=== PATIENT | male | born 1965 | race Caucasian/White ===

== ENCOUNTER 2017-06-14 19:10 | Inpatient (IN) | payer OTHER ==
[~2017-06-14] VITALS: Ht 195.6 cm; Wt 117.8 kg
--- NOTE | ~2017-06-14 | CN ---
PATIENT NAME:ADIN MENA MEDICAL RECORD: [id number] : 69 LOCATION:[facility] ADMIT DATE: 06/14/17 ACCOUNT: [id number] CONSULTING PHYSICIAN: JASPAL PATEL MD REFERRING PHYSICIAN: CHRIS HALEY MD DATE OF CONSULTATION: 06/15/2017 ADDENDUM: PHYSICAL EXAMINATION: GENERAL: The patient does not appear acutely ill. He does not appear chronically ill. VITAL SIGNS: Reviewed. EARS: External ears appear normal. EYES: Extraocular movements are intact. NECK: Trachea is midline. CHEST: No intercostal retractions. PULMONARY: Nonlabored, no stridor. ABDOMEN: No peritonitis with movement. EXTREMITIES: Foot wound as described in the history of present illness. BACK: No thoracic kyphosis. LYMPHATICS: No lymphangitic streaking of the exposed extremities. PSYCHIATRIC: Anxious affect, tearful. NEUROLOGIC: Decreased sensation in the feet. IMPRESSION: Diabetic foot infections with ulceration and probable osteomyelitis. PLAN: Operative debridement per Dr. Mtz. He is going to review the MRIs and speak with the patient and his family. TRANSINT:[id number] Voice Confirmation ID: [id number] DOCUMENT ID: [id number] JASPAL PATEL MD CC: [id number] DICTATION DATE: 06/15/17 1721 EPIDEMIOLOGY INTERNSHIP: 06/15/[address] [facility] [address] [place] [address]
[~2017-06-14 19:10] MED LIST: CLEOCIN HCL150 MG PO; FARXIGA10 MG PO; JANUMET 50-1,001 TAB PO; LEVAQUIN500 MG PO; STENDRA PO
--- NOTE | 2017-06-14 19:33 | NUR ---
REC'D A DIRCT ADMIT TO ROOM 2222 PER W/C A 51 Y/O W/M PER SERVICES DR. HALEY WITH DX. ABSCESS LEFT FOOT 2 AREAS OF INFECTION WITH SCABS NOTED TO BOTTOM OF LEFT FOOT. ASSESSMENT PER ADMIT PACKET.
[2017-06-14] MEDS ORDERED: BAYER CHEWABLE81 MG PO (20:24)
[2017-06-14] MEDS ORDERED: CIALIS5 MG PO (20:24)
--- NOTE | 2017-06-14 21:30 | NUR ---
IV STARTED TO LEFT WRIST 22G ANGIOCATH X2 ATTEMPTS STARTED PT ANTIBIOTIC. WOUND CULTURE OBTAINED AND SENT TO LAB.
--- NOTE | 2017-06-14 21:36 | NUR ---
FIJE=989. HUMALOG INSULIN 4 UNITS GIVEN SUBC PER S/S LEFT ARM.
[2017-06-14 23:11] VITALS: BP 136/84; BMI 30.8
--- NOTE | 2017-06-15 | NUR ---
EYES CLOSED RESPIRATIONS WITH EASE AND UNLABORED. R UP X2 CALL LIGHT WITHIN REACH.
[2017-06-15] MEDS ORDERED: OMEPRAZOLE20 M1 PO (00:10)
--- NOTE | 2017-06-15 03:00 | NUR ---
RESTING QUIETLY DENIES PAIN OR DISCOMFORT.
[2017-06-15 05:57] LABS: HEMATOCRIT 48.7 % (42.0-54.0); HEMOGLOBIN 16.6 g/dL (13.5-17.5); MCH 29.1 pg (26.0-34.0); MCHC 34.1 g/dL (31.0-37.0); MCV 85.4 fL (80.0-100.0); MEAN PLATELET VOLUME 10.2 fL (7.4-10.4); PLATELET COUNT 292 10x3/uL (130-400); WBC 10.7 10x3/uL (4.8-10.8)
[2017-06-15 06:25] LABS: CALC OSMOLALITY 282 mosm/kg (275-300); CALCIUM 9.1 mg/dL (8.5-10.1); CARBON DIOXIDE 23.5 mmol/L (21.0-32.0); CHLORIDE - SERUM 103 mmol/L (98-107); GLUCOSE 154 mg/dL (74-106); SODIUM 140 mmol/L (136-145); UREA NITROGEN 16 mg/dL (7-18); eGFR NON AFRICAN AMERICAN 84 mL/min (90-120)
[2017-06-15 06:46] LABS: ANISOCYTOSIS OCC; EOSINOPHILS 7 % (0-7); LYMPHOCYTES 24 % (15-50); MONOCYTES 6 % (2-11); NEUTROPHILS 59 % (40-80); PLATELET ESTIMATE NORMAL
--- NOTE | 2017-06-15 06:53 | NUR ---
GLUCOSE WITH TAA=441. HUMALOG UINSULIN 2 UNITS GIVEN PER S/S.
--- NOTE | 2017-06-15 07:15 | NUR ---
REPORT RECEIVED FROM [employer] INS[employer]ANCE CLAIMS ADJUSTER NURSE. CALL LIGHT IN REACH.
--- NOTE | 2017-06-15 08:20 | NUR ---
ASSESSMENT COMPLETED. CALL LIGHT IN REACH. WILL CONTINUE WITH PLAN OF CARE.
[2017-06-15 08:42] VITALS: BP 123/77
--- NOTE | 2017-06-15 10:36 | NUR ---
REBECA IVPB. ORAL MEDS HELD D/T NPO STATUS. CALL LIGHT IN REACH.
--- NOTE | 2017-06-15 11:45 | NUR ---
FSBS 163. WILL NOT GIVE INSULIN D/T NPO STATUS.
[2017-06-15 12:52] VITALS: BP 135/83
--- NOTE | 2017-06-15 13:25 | NUR ---
DR. LASWON HERE TO SEE PATIENT.
[2017-06-15 14:04] VITALS: Ht 195.6 cm; Wt 117.8 kg
--- NOTE | 2017-06-15 15:26 | NUR ---
CALLED MRI TO SEE WHAT TIME PATIENT WILL HAVE THE MRI OF HIS LEFT FOOT BUT NO ANSWER. WILL CALL AGAIN LATER.
--- NOTE | 2017-06-15 15:48 | NUR ---
PT AOX4 RESP EVEN AND NONLABORED PT HERE FOR FOOT ABCESS AND CELLULITIS FOR THIS VISIT IV TO LEFT WRIST PATENT AND INTACT AT THIS TIME SRX2 BED AT LOWEST SETTING CALL LIGHT WITHIN REACH WILL CONTINUE TO MONITOR
--- NOTE | 2017-06-15 16:05 | NUR ---
FRANCIS LISA, IN ROOM TO SPEAK WITH PATIENT.
[2017-06-15 16:39] VITALS: BP 150/88
--- NOTE | 2017-06-15 16:42 | NUR ---
Patient Name: ADIN MENA Admission Status: Elective Accout number: [id number] Admission Date: 06-14-2017 : 1965 Admission Diagnosis: Attending: CHRIS HALEY Current LOS: 1 Anticipated DC Date: 06-19-2017 Planned Disposition: Home with Home Health Primary Insurance: [facility] PPO Discharge Planning Comments: CM MET WITH PATIENT REGARDING D/C NEEDS AND PLANS. PATIENT STATED HE LIVES WITH HIS (RENEE) AND SHE WILL DRIVE HIM HOME AT DISCHARGE. PATIENT STATED HE HAS 10 STEPS INSIDE HOME W/RAILS AND NO STEPS TO ENTER HOME. PATIENT IS INDEPENDENT WITH HIS CARE AND HAS NO DME EXCEPT A GLUCOMETER (CHECKS 1X WEEK). PATIENTS PCP IS DR. HALEY AND PHARMACY IS [facility] [address]. PATIENT WILL CHOOSE A HOME HEALTH LATER IN HIS STAY. CM WILL CONTINUE TO FOLLOW PATIENT WITH D/C NEEDS AND PLANS. PCP DR. TERA BEAVER- [phone] RENEE () [phone] Assistant Manager Of Operations: Brinda Mederos Is the patient Alert and Oriented? Yes 0 * How many steps to enter\exit or inside your home? 10 0 * PCP DR. HALEY 0 * [facility] [address] [facility] * Preadmission Environment Home with Family 0 * ADLs Independent 0 * Equipment Glucometer 0 * List name and contact numbers for known caregivers / representatives who currently or will assist patient after discharge: RENEE () [phone] * Community resources currently utilized None 0 * Additional services required to return to the preadmission environment? Yes 0 * Can the patient safely return to the preadmission environment? Yes 0 * Has this patient been hospitalized within the prior 30 days at any hospital? No 0 Grand Total: 0
--- NOTE | 2017-06-15 18:20 | NUR ---
BACK IN ROOM FROM MRI AFTER 2 HOURS. ORAL MEDS ADMINISTERED AND DINNER TRAY GIVEN. WILL RECHECK BLOOD SUGAR TONIGHT. CALL LIGHT IN REACH. WILL CONTINUE WITH PLAN OF CARE.
[2017-06-15 20:00] VITALS: BP 124/79
--- NOTE | 2017-06-15 20:00 | NUR ---
ASSESSMENT PER FLOWSHEET. 2 BLACK SORES WITH SCABS LOCATED TO PT'S BOTTOM RIGHT FOOT NO DRAINAGE. SALINE LOCK PATENT LEFT WRIST.FAMILY IN ROOM
--- NOTE | 2017-06-15 21:00 | NUR ---
MEDS GIVEN PER MAR. CQQS=394 HUMALOG INSULIN 4 UNITS GIVEN SUBC PER S/S.
[2017-06-16] VITALS: BP 116/65
--- NOTE | 2017-06-16 | NUR ---
NPO AFTER MIDNIGHT ORDERED.
--- NOTE | 2017-06-16 03:00 | NUR ---
EYES CLOSED RESPIRATIONS WITH EASE AND UNLABORED. DENIES PAIN.
[2017-06-16 04:00] VITALS: BP 120/73
--- NOTE | 2017-06-16 06:30 | NUR ---
JHUZ=249 NO COVERAGE GIVEN PT IS NPO FOR POSSIBLE SURGERY.
--- NOTE | 2017-06-16 07:20 | NUR ---
REPORT RECIEVED, ASSUMED CARE OF PT. PT RESTING IN BED, EYES SHUT, EASILY AROUSED, NO COMPLAINTS AT THIS TIME. BED IN LOWEST POSITION, SIDE RAILS UP X 2, CALL LIGHT WITHIN REACH.
[2017-06-16 08:58] VITALS: BP 133/76
--- NOTE | 2017-06-16 12:09 | NUR ---
CONSENT FOR (LEFT FOOT ULCERATIONS DEBRIDEMENT) PROCEDURE, CONSENT FOR ANESTHESIA AND CONSENT FOR BLOOD SIGNED BY PT.
[2017-06-16 12:48] VITALS: BP 120/75
--- NOTE | 2017-06-16 16:00 | NUR ---
PT RESTING IN ROOM, WATCHING TV. NO COPMLAINTS AT THIS TIME. BED IN LOWEST POSITION, SIDE RAILS UP X 2, CALL LIGHT WITHIN REACH.
[2017-06-16 17:46] VITALS: BP 159/86
--- NOTE | 2017-06-16 18:58 | NUR ---
PT FAMILY AT BEDSIDE, NO COMPLAINTS AT THIS TIME. SITTING UP IN CHAIR.
--- NOTE | 2017-06-16 19:00 | NUR ---
REPORT RECIEVED ASSUMED CARE. PATIENT IN BED WITH IV INTACT. NO COMPLAINTS AT THIS TIME. FAMILY AT BEDSIDE. CALL LIGHT WITHIN REACH.
[2017-06-16 20:00] VITALS: BP 129/83
--- NOTE | 2017-06-16 20:00 | NUR ---
ASSESSMENT COMPLETE, VS STABLE. NO COMPLAINTS AT THIS TIME. IV INTACT. NO DRESSING OVER FOOT WOUNDS. NO DRAINAGE AT THIS TIME. EXPLAINED NPO P MN FOR SURGERY IN AM. VERBALIZED UNDERSTANDING. CALL LIGHT WITHIN REACH.
--- NOTE | 2017-06-16 22:45 | NUR ---
PATIENT IN BED WITH IV INTACT. EATING GRAM CRACKERS AT THIS TIME. REFUSE INSULIN EARLIER FOR BS 192 BC GOING TO BE NPO P MN. CALL LIGHT WITHIN REACH.
[2017-06-17] VITALS: BP 130/78
--- NOTE | 2017-06-17 01:25 | NUR ---
PATIENT IN BED WITH EYES CLOSED RESTING QUIETLY. CALL LIGHT WITHIN REACH.
--- NOTE | 2017-06-17 03:57 | NUR ---
PATIENT IN BED WITH IV INTACT. NO COMPLAINTS AT THIS TIME. EYES CLOSED RESTING. CALL LIGHT WITHIN REACH.
[2017-06-17 04:00] VITALS: BP 102/66
--- NOTE | 2017-06-17 05:17 | NUR ---
PATIENT IN BED WITH NO COMPLAINTS AT THIS TIME. IV INTACT. CALL LIGHT WITHIN REACH.
--- NOTE | 2017-06-17 07:00 | NUR ---
REPORT RECIEVED, ASSUMED CARE OF PT.
[2017-06-17 07:26] LABS: BASOPHILS 0.4 % (0-2); EOSINOPHILS 3.9 % (0-7); HEMATOCRIT 49.1 % (42.0-54.0); IMMATURE GRANULOCYTES 0.4 % (0-5); LYMPHOCYTES 20.3 % (15-50); MCH 29.4 pg (26.0-34.0); MCHC 34.6 g/dL (31.0-37.0); MCV 84.9 fL (80.0-100.0); MEAN PLATELET VOLUME 9.6 fL (7.4-10.4); MONOCYTES 8.2 % (2-11); NEUTROPHILS 66.8 % (40-80); PLATELET COUNT 267 10x3/uL (130-400); RBC 5.78 10x6/uL (4.20-6.10); RDW 13.8 % (11.5-14.5); WBC 10.6 10x3/uL (4.8-10.8)
[2017-06-17 07:39] LABS: ALKALINE PHOSPHATASE 79 U/L (46-116); ALT (SGPT) 14 U/L (10-68); BILIRUBIN - TOTAL 0.32 mg/dL (0.2-1.3); CALC OSMOLALITY 277 mosm/kg (275-300); CALCIUM 8.5 mg/dL (8.5-10.1); CARBON DIOXIDE 25.1 mmol/L (21.0-32.0); CHLORIDE - SERUM 103 mmol/L (98-107); POTASSIUM - SERUM 4.1 mmol/L (3.5-5.1); SODIUM 136 mmol/L (136-145); UREA NITROGEN 13 mg/dL (7-18); eGFR NON AFRICAN AMERICAN 84 mL/min (90-120)
[2017-06-17 07:41] LABS: GLUCOSE 211 mg/dL (74-106)
[2017-06-17 08:32] VITALS: BP 131/79
--- NOTE | 2017-06-17 11:57 | NUR ---
PT RESTING IN ROOM, NO COMPLAINTS AT THIS TIME. BED IN LOWEST POSITION, SIDE RAILS UP X 2, CALL LIGHT WITHIN REACH.
[2017-06-17 12:09] VITALS: BP 145/87
--- NOTE | 2017-06-17 12:26 | NUR ---
CONTACT ISOLATION PRECAUTIONS IN PLACE. PT AND FAMILY NOTIFIED.
--- NOTE | 2017-06-17 13:32 | NUR ---
NUTRITION F/U CHART REVIEWED. PT NOW IN ISOLATION. NPO FOR PROCEDURE. WILL PROVIDE DIET WHEN RESUMED, MONITOR PT PROGRESS. RD FOLLOWING
[2017-06-17 16:44] VITALS: BP 100/60
--- NOTE | 2017-06-17 16:49 | NUR ---
PT RESTING IN ROOM, CONTACT ISOLATION PRECAUTIONS IN PLACE. AT BEDSIDE. NO COMPLAINTS AT THIS TIME. BED IN LOWEST POSITION, SIDE RAILS UP X 2, CALL LIGHT WITHIN REACH.
--- NOTE | 2017-06-17 19:00 | NUR ---
REPORT RECIEVED ASSUMED CARE. PATIENT IN BED WITH IV INTACT. NO COMPLAINTS AT THIS TIME. CALL LIGHT WITHIN REACH.
[2017-06-17 20:00] VITALS: BP 144/83
--- NOTE | 2017-06-17 20:00 | NUR ---
ASSESSMENT COMPLETE, VS STABLE. NO COMPLAINTS AT THIS TIME. SITTING UP IN BED WITH IV INTACT. FAMILY AT BEDSIDE. CALL LIGHT WITHIN REACH.
--- NOTE | 2017-06-17 23:00 | NUR ---
PATIENT IN BED WITH EYES CLOSED. NO COMPLAINTS. CALL LIGHT WITHIN REACH.
[2017-06-18] VITALS (7 sets, daily range): BP systolic 126–153; BP diastolic 72–92
--- NOTE | 2017-06-18 01:53 | NUR ---
PATIENT IN BED WITH EYES CLOSED RESTING QUIETLY. NO COMPLAINTS OR SIGNS OF DISTRESS. CALL LIGHT WITHIN REACH.
--- NOTE | 2017-06-18 04:21 | NUR ---
PATIENT RESTING QUIETLY IN BED WITH NO COMPLAINTS. CALL LIGHT WITHIN REACH.
--- NOTE | 2017-06-18 07:30 | NUR ---
RECIEVED PT DURING WALKING ROUNDS. PT RESTING IN BED WITH NO COMPLAINTS OF PAIN OR DISCOMFORT AT THIS TIME. PT AWAITING SURGERY. ASSESSMENT DONE PER FLOWSHEET. BED IN LOW POSITION AND CALL LIGHT WITHIN REACH.
--- NOTE | 2017-06-18 10:00 | NUR ---
PT TAKEN FOR SURGERY AT THIS TIME. NO PRE-OP MEDS GIVEN ON THE FLOOR DUE TO NO ORDERS. INFORMATION RELAYED TO PRE-OP NURSE.
--- NOTE | 2017-06-19 01:26 | NUR ---
PT RESTING QUIETLY, EYES CLOSED. NO DISTRESS NOTED. CONTACT ISOLATION. LEFT FOOT KAIDEN WRAP/DRSG WITH SEROSANG DRAINAGE. DENIES PAIN. FSBS 134 NO INSULIN COVERAGE. COMPLETE ASSESSMENT PER FLOW-SHEET. WILL CONTINUE TO MONITOR.
[2017-06-19 04:04] VITALS: BP 149/71
[2017-06-19 05:16] LABS: HEMATOCRIT 47.1 % (42.0-54.0); HEMOGLOBIN 16.1 g/dL (13.5-17.5)
--- NOTE | 2017-06-19 07:30 | NUR ---
RECIEVED PT DURING WALKING ROUNDS, PT RESTING IN BED WITH COMPLAINTS OF PAIN OF A 3 ON A SCALE OF 1-10. NO MEDICATION TO BE GIVEN AT THIS TIME. ASSESSMENT DONE PER FLOWSHEET. BED IN LOW POSITION AND CALL LIGHT WITHIN REACH. WILL CONTINUE TO MONITOR.
[2017-06-19 08:57] VITALS: BP 114/71
[2017-06-19 12:35] VITALS: BP 118/73
[2017-06-19 15:25] VITALS: BP 120/68
[2017-06-19 19:00] VITALS: BP 112/73
[2017-06-20] VITALS: BP 123/69
--- NOTE | 2017-06-20 03:15 | NUR ---
RN NOTE: PT RESTING QUIETLY IN SUPINE POSITION WITH EYES CLOSED AND UNLABORED BREATHING. O2 IN USE AT 2L VIA NC. IV IN LEFT WRIST SALINE LOCKED. WILL CONTINUE TO MONITOR FOR NEEDS. CALL LIGHT WITHIN REACH.
[2017-06-20 04:00] VITALS: BP 110/53
[2017-06-20 04:55] LABS: HEMATOCRIT 46.4 % (42.0-54.0); HEMOGLOBIN 15.9 g/dL (13.5-17.5)
--- NOTE | 2017-06-20 07:25 | NUR ---
REPORT RECEIVED FROM CLINICAL ASSISTANT NURSE. CALL LIGHT IN REACH.
--- NOTE | 2017-06-20 09:15 | NUR ---
ASSESSMENT COMPLETED. DENIES NEEDS. OFFERED SCD TO RLE BUT REFUSED. CALL LIGHT IN REACH. WILL CONTINUE WITH PLAN OF CARE.
[2017-06-20 10:01] VITALS: BP 115/67
--- NOTE | 2017-06-20 10:42 | NUR ---
AM MEDS ADMINISTERED. DENIES PAIN OR NEEDS. CALL LIGHT IN REACH.
--- NOTE | 2017-06-20 12:23 | NUR ---
FSBS 235. HUMALOG 8 UNITS SUBQ TO RIGHT ARM. IV SL. CALL LIGHT IN REACH.
[2017-06-20 13:13] VITALS: BP 136/79
--- NOTE | 2017-06-20 14:03 | NUR ---
IN ROOM WITH FAMILY AT THIS TIME. DRSG TO LEFT FOOT CLEAN AND DRY. TALENT DEVELOPMENT CONSULTANT TO CHANGE DRSG. CONTACT ISOLATION. DENIES NEEDS AND PAIN AT THIS TIME. CALL LIGHT IN REACH.
--- NOTE | 2017-06-20 15:20 | NUR ---
IV FLUSHED WITH NS PER ORDER. FAMILY AT BEDSIDE. CALL LIGHT IN REACH.
[2017-06-20 15:56] VITALS: BP 110/74
--- NOTE | 2017-06-20 17:11 | NUR ---
EVENING MEDS ADMINISTERED. FSBS 117 SO NO COVERAGE REQUIRED. CALL LIGHT IN REACH.
--- NOTE | 2017-06-20 17:50 | NUR ---
DRSG TO LEFT FOOT CHANGED PER ORDER.
--- NOTE | 2017-06-20 18:06 | NUR ---
NO CHANGES IN INITIAL ASSESSMENT. CALL LIGHT IN REACH. WILL CONTINUE WITH PLAN OF CARE. STILL REFUSES SCDs.
[2017-06-20 19:00] VITALS: BP 141/91
--- NOTE | 2017-06-20 20:00 | NUR ---
ASSESSMENT PER FLOWSHEET. ACEWRAP TO LEFT FOOT C/D/I. SALINE LOCK PATENT TO LEFT WRIST SITE CLEAR. AANTIBIOTIC ADDED TO SITE TO INFUSE.
--- NOTE | 2017-06-20 21:00 | NUR ---
MEDS GIVEN PER MAR. OLAN=825. HUMALOG INSULIN 4 UNITS SUBC PER S/S GIVEN TO RT ARM.
--- NOTE | 2017-06-20 22:00 | NUR ---
OUT BED IN TO GO OUTSIDE TO SMOKE.
[2017-06-21] VITALS: BP 146/87
--- NOTE | 2017-06-21 01:59 | NUR ---
IN ROOM EYES CLOSED RESPIRATIONS WITH EASE AND UNLABORED.
--- NOTE | 2017-06-21 03:40 | NUR ---
MEDS GIVEN PER MAR. YNUO=672. NO COVERAGE NEEDED.
[2017-06-21 04:00] VITALS: BP 112/69
--- NOTE | 2017-06-21 04:15 | NUR ---
EYES CLOSED RESPIRATIONS WITH EASE AND UNLABORED.
[2017-06-21 05:31] LABS: HEMOGLOBIN 16.2 g/dL (13.5-17.5)
--- NOTE | 2017-06-21 06:00 | NUR ---
CGRT=382 NO COVERAGE NEEDED. NO CHANGES IN ASSESSMENT MEDS GIVEN PER DEC.
--- NOTE | 2017-06-21 07:09 | NUR ---
REPORT RECEIVED FROM EXPERIENCE SPECIALIST NURSE. CALL LIGHT IN REACH.
--- NOTE | 2017-06-21 07:18 | NUR ---
PATIENT IN BED WITH IV INTACT. NO COMPLAINTS OR SIGNS OF DISTRESS. CALL LIGHT WITHIN REACH.
--- NOTE | 2017-06-21 07:49 | NUR ---
ASSESSMENT COMPLETED. DENIES NEEDS. REFUSE SCD TO RLE. CALL LIGHT IN REACH. WILL CONTINUE WITH PLAN OF CARE.
[2017-06-21 08:45] VITALS: BP 120/69
[2017-06-21 09:02] LABS: BASOPHILS 0.2 % (0-2); EOSINOPHILS 5.5 % (0-7); IMMATURE GRANULOCYTES 0.4 % (0-5); LYMPHOCYTES 25.9 % (15-50); MCH 29.2 pg (26.0-34.0); MCHC 34.3 g/dL (31.0-37.0); MEAN PLATELET VOLUME 10.2 fL (7.4-10.4); MONOCYTES 12.9 % (2-11); NEUTROPHILS 55.1 % (40-80); PLATELET COUNT 256 10x3/uL (130-400); RBC 5.59 10x6/uL (4.20-6.10); RDW 13.7 % (11.5-14.5)
[2017-06-21 09:10] LABS: ALBUMIN 2.9 g/dL (3.4-5.0); ALKALINE PHOSPHATASE 68 U/L (46-116); ALT (SGPT) 19 U/L (10-68); BILIRUBIN - TOTAL 0.34 mg/dL (0.2-1.3); CALC OSMOLALITY 278 mosm/kg (275-300); CALCIUM 8.4 mg/dL (8.5-10.1); CARBON DIOXIDE 25.1 mmol/L (21.0-32.0); CHLORIDE - SERUM 103 mmol/L (98-107); CREATININE - SERUM 1.1 mg/dL (0.6-1.3); POTASSIUM - SERUM 3.9 mmol/L (3.5-5.1); PROTEIN - SERUM 6.8 g/dL (6.4-8.2); SODIUM 138 mmol/L (136-145); UREA NITROGEN 15 mg/dL (7-18); eGFR NON AFRICAN AMERICAN 75 mL/min (90-120)
[2017-06-21 09:11] LABS: GLUCOSE 129 mg/dL (74-106)
--- NOTE | 2017-06-21 09:50 | NUR ---
AMBULATING IN HALLWAY AT THIS TIME. DENIES OTHER NEEDS. CALL LIGHT IN REACH.
--- NOTE | 2017-06-21 10:42 | NUR ---
AM MEDS ADMINISTERED PER KYLE WIN.
[2017-06-21 12:33] VITALS: BP 135/79
--- NOTE | 2017-06-21 12:40 | NUR ---
[id number] F/U CHART REVIEWED, PT VISIT. TOLERATING ADA DIET WITH GOOD PO INTAKE. WILL CONTINUE TO PROVIDE DIET. RD FOLLOWING
--- NOTE | 2017-06-21 12:49 | NUR ---
FSBS 172 AFTER EATING. WANTING TO SKIP INSULIN AT THIS TIME.
--- NOTE | 2017-06-21 14:30 | NUR ---
NO NEEDS VOICED AT THIS TIME. CALL LIGHT IN REACH.
[2017-06-21 15:25] VITALS: BP 128/64
--- NOTE | 2017-06-21 16:50 | NUR ---
BLOOD SUGAR 117 SO NO COVERAGE REQUIRED. CALL LIGHT IN REACH.
--- NOTE | 2017-06-21 18:15 | NUR ---
WTD DRSG TO LEFT FOOT. NO CHANGES IN INITIAL ASSESSMENT. CALL LIGHT IN REACH. WILL CONTINUE WITH PLAN OF CARE. STILL REFUSES SCDs.
[2017-06-21 20:00] VITALS: BP 106/65
--- NOTE | 2017-06-21 20:00 | NUR ---
ASSESSMENT PER FLOWSHEET. DRESSIG TO LEFT FOOT C/D/I. OUT OF BED IN WC TO GO OUTSIDE. SALINE LOCK PATENT LEFT WRIST.
--- NOTE | 2017-06-21 22:30 | NUR ---
OUT OF BED TO GO OUTSIDE IN .
[2017-06-22] VITALS: BP 122/65
--- NOTE | 2017-06-22 | NUR ---
IN ROOM SR UP X2 CALL LIGHT WITHIN REACH RESTING QUIETLY DENIES NEEDS.
--- NOTE | 2017-06-22 02:00 | NUR ---
EYES CLOSED RESPIRATIONS WITH EASE AND UNLABORED.
[2017-06-22 06:23] LABS: BASOPHILS 0.3 % (0-2); EOSINOPHILS 5.9 % (0-7); HEMATOCRIT 47.6 % (42.0-54.0); HEMOGLOBIN 16.2 g/dL (13.5-17.5); IMMATURE GRANULOCYTES 0.6 % (0-5); LYMPHOCYTES 25.7 % (15-50); MCH 28.9 pg (26.0-34.0); MEAN PLATELET VOLUME 9.9 fL (7.4-10.4); MONOCYTES 9.5 % (2-11); PLATELET COUNT 257 10x3/uL (130-400); RDW 13.9 % (11.5-14.5); WBC 8.9 10x3/uL (4.8-10.8)
[2017-06-22 06:54] LABS: ALBUMIN 2.9 g/dL (3.4-5.0); ALKALINE PHOSPHATASE 77 U/L (46-116); ALT (SGPT) 17 U/L (10-68); BILIRUBIN - TOTAL 0.32 mg/dL (0.2-1.3); C-REACTIVE PROTEIN 1.9 mg/dL (0.0-0.9); CALC OSMOLALITY 282 mosm/kg (275-300); CALCIUM 8.8 mg/dL (8.5-10.1); CARBON DIOXIDE 27.6 mmol/L (21.0-32.0); CHLORIDE - SERUM 103 mmol/L (98-107); GLUCOSE 156 mg/dL (74-106); POTASSIUM - SERUM 4.2 mmol/L (3.5-5.1); PROTEIN - SERUM 6.9 g/dL (6.4-8.2); SODIUM 140 mmol/L (136-145); UREA NITROGEN 16 mg/dL (7-18); eGFR NON AFRICAN AMERICAN 84 mL/min (90-120)
[2017-06-22 07:54] LABS: ERYTHROCYTE SEDIMENTATION RATE 7 mm/hr (0-15)
--- NOTE | 2017-06-22 08:21 | NUR ---
PT AOX4 RESP EVEN AND NONLABORED PT DENIES NEEDS AT THIS TIME IV TO LEFT WRIST SL PATENT AND INTACT AT THIS TIME SRX2 BED AT LOWEST SETTING CALL LIGHT WITHIN REACH WILL CONTINUE TO MONITOR
[2017-06-22 08:48] VITALS: BP 130/86
--- NOTE | 2017-06-22 11:13 | NUR ---
CM REASSESSMENT NOTE: PATIENT SIGNED THE [place] FORM FOR [facility] 1ST CHOICE AND THEN [facility] 2ND CHOICE. ABX ORDER SENT TO [facility] FOR PRICING. CM WILL CONTINUE TO FOLLOW PATIENT WITH D/C NEEDS AND PLANS.
[2017-06-22 12:33] VITALS: BP 144/83
--- NOTE | 2017-06-22 13:51 | NUR ---
CM REASSESSMENT NOTE: PATIENT IS DISCHARGING HOME TODAY WITH [facility]. [employer] DELIVERING ABX TONIGHT AND HAS BEEN IN CONTACT WITH [employer]. PATIENT WILL PAY 16.00 PER VISIT FOR [employer] AND COPAY FOR [employer] IS 300.53 PER NICK. PATIENT WAS OK WITH THIS AND IS DRIVING HIM HOME TODAY.
[2017-06-22] MEDS ORDERED: FLORAJEN3 CAPS460 MG PO (14:38)
[2017-06-22] MEDS ORDERED: FLAGYL500 MG PO (14:40)
[2017-06-22] MEDS ORDERED: VANCOMYCIN 1 GM/1 G1 IV (14:41)
--- NOTE | 2017-06-22 14:49 | OP ---
PATIENT NAME: ADIN GUY MEDICAL RECORD: [id number] :69 LOCATION:[facility] ADMISSION DATE:06/14/17 SURGEON: MAYUR LAWSON DO DATE OF OPERATION: 06/18/2017 PROCEDURE PERFORMED: Left foot stage IV diabetic plantar foot ulcer debridement with tissue biopsy and bone biopsy and cultures. PREOPERATIVE DIAGNOSES: Left diabetic stage IV plantar foot ulcers with osteomyelitis in the 4th metatarsal. POSTOPERATIVE DIAGNOSES: Left diabetic stage IV plantar foot ulcers with osteomyelitis in the 4th metatarsal. INDICATIONS: Mr. Guy is a 51-year-old male that presented to the hospital with a draining wound from the left plantar foot. He had an ulcer on the plantar surface over the fourth metatarsal. Two years ago, it was debrided and had never healed and then began to get an ulcer over the plantar of the first metatarsophalangeal joint. In the last few weeks, started being getting sick and having more drainage from an inside to come in. He had an MRI, which showed osteomyelitis of the fourth metatarsal and cellulitis as well as what appeared to be infection, increased uptake in over the first metatarsophalangeal joint as well as some soft tissue. I had a long discussion with him about due to the chronicity of his ulcers and the infection that was in it, I offered amputation either transmet or below-knee amputation. He did not want that. He said he would like to have his foot debrided again and have wound care done. Due to the patient's wishes, this is what was performed. SURGEON: Mayur Lawson DO. DESCRIPTION OF PROCEDURE: The patient was taken to the operative suite, given general anesthetic and LMA was placed. Timeout was performed. The patient has been receiving antibiotics on the floor, we discontinue those and everyone was in agreement with the correct site, side and the patient and the left foot was prepped and draped, prepped with Betadine and draped in sterile fashion. The plantar surface of the foot tissue that was extruding out of the plantar wound over the fourth metatarsal was snipped off with a rongeur and sent for biopsy in identification. Attention was then drawn to the plantar ulcer over the first metatarsophalangeal joint and it was opened up. The tissue was removed to bleeding surface and a curette was taken and all the tissue surrounding that was removed as well. The culture was then performed over the plantar first metatarsal wound deep, 3 sets of aerobic, anaerobic and Gram stain were taken in that tissue. Once this was done, the tissue was removed and irrigated. The ulcer over the fourth metatarsal, all the necrotic tissue was removed back to a bleeding surface and the fourth metatarsal was exposed openly in the wound. A rongeur was then used to take pieces of the fourth metatarsal, sent for culture for bone biopsy. Both wounds were then copiously irrigated and a wet to dry dressing was placed on the plantar surface of the foot with an Gallito wrap over Kerlix and Gallito wrap. The patient was awakened and taken to the PACU in stable condition. Blood loss was minimal. We will await culture sensitivities for switching antibiotics. TRANSINT:[id number] Voice Confirmation ID: [id number] DOCUMENT ID: [id number] OPERATIVE REPORT [id number] ADIN GUY MICHAEL D, DO at 1449 CC: [id number] DICTATION DATE: 06/18/17 1107 BUSINESS LIAISON MANAGER: 06/18/17 1505 ADM IN [address] [place] [address]
--- NOTE | 2017-06-22 16:22 | NUR ---
IV DISCONTINUED WITH CATHETER INTACT AT THIS TIME PT GIVEN DISCHARGE INSTRUCTIONS AND TAKEN VIA WHEELCHAIR VIA PRIVATE VEHICLE AT THIS TIME
== END 2017-06-22 16:24 | disposition home health service (06) | DRG 638 ==
LOC: D.MS 19:10
PROVIDERS: Orthopaedic Surgery; ADMIT Emergency Medicine
PROC: 02HV33Z Insertion of Infusion Device into Superior Vena Cava, Percutaneous Approach (ICD-10-PCS; principal; 2017-06-22)
PROC: B548ZZA Ultrasonography of Superior Vena Cava, Guidance (ICD-10-PCS; 2017-06-22)
DX: E11.621 Type 2 diabetes mellitus with foot ulcer (principal); M86.9 Osteomyelitis, unspecified; E11.40 Type 2 diabetes mellitus with diabetic neuropathy, unspecified; E11.69 Type 2 diabetes mellitus with other specified complication; L97.522 Non-pressure chronic ulcer of other part of left foot with fat layer exposed; E11.65 Type 2 diabetes mellitus with hyperglycemia; B95.62 Methicillin resistant Staphylococcus aureus infection as the cause of diseases classified elsewhere; B95.1 Streptococcus, group B, as the cause of diseases classified elsewhere

== ENCOUNTER → 2017-06-28 16:28 | Outpatient (CLI) | payer OTHER ==
[2017-06-15 14:04] VITALS: BMI 30.8
[~2017-06-28 16:28] MED LIST changes: +BAYER CHEWABLE81 MG PO; +CIALIS5 MG PO; +FLAGYL500 MG PO; +FLORAJEN3 CAPS460 MG PO; +OMEPRAZOLE20 M1 PO; +VANCOMYCIN 1 GM/1 G1 IV
[2017-06-28 19:36] LABS: CREATININE - SERUM 1.1 mg/dL (0.6-1.3); VANCOMYCIN - TROUGH 17.9 ug/mL (10.0-20.0)
== END | disposition home or self-care (01) ==
LOC: D.LABREF 16:28
PROVIDERS: Emergency Medicine
DX: E11.9 Type 2 diabetes mellitus without complications (principal)

== ENCOUNTER → 2017-07-04 09:53 | Outpatient (CLI) | payer OTHER | END | disposition home or self-care (01) | LOC: D.LABREF 09:53 | DX: E11.621 Type 2 diabetes mellitus with foot ulcer (principal) ==

== ENCOUNTER → 2017-07-11 10:22 | Outpatient (CLI) | payer OTHER ==
[2017-06-15 14:04] VITALS: BMI 30.8
[2017-07-11 11:35] LABS: BASOPHILS 0.4 % (0-2); EOSINOPHILS 4.4 % (0-7); HEMATOCRIT 48.1 % (42.0-54.0); HEMOGLOBIN 16.5 g/dL (13.5-17.5); IMMATURE GRANULOCYTES 0.1 % (0-5); LYMPHOCYTES 21.1 % (15-50); MCH 29.7 pg (26.0-34.0); MCHC 34.3 g/dL (31.0-37.0); MCV 86.5 fL (80.0-100.0); MEAN PLATELET VOLUME 10.4 fL (7.4-10.4); PLATELET COUNT 233 10x3/uL (130-400); RBC 5.56 10x6/uL (4.20-6.10); RDW 14.9 % (11.5-14.5)
[2017-07-11 11:36] LABS: C-REACTIVE PROTEIN 0.7 mg/dL (0.0-0.9); VANCOMYCIN - TROUGH 18.3 ug/mL (10.0-20.0)
[2017-07-11 12:52] LABS: ERYTHROCYTE SEDIMENTATION RATE 1 mm/hr (0-15)
== END | disposition home or self-care (01) ==
LOC: D.LABREF 10:22
PROVIDERS: Student in an Organized Health Care Education/Training Program
DX: E11.621 Type 2 diabetes mellitus with foot ulcer (principal)

== ENCOUNTER → 2017-07-18 10:24 | Outpatient (CLI) | payer OTHER ==
[2017-06-15 14:04] VITALS: BMI 30.8
[2017-07-18 11:48] LABS: BASOPHILS 0.3 % (0-2); EOSINOPHILS 3.7 % (0-7); HEMATOCRIT 51.2 % (42.0-54.0); HEMOGLOBIN 17.4 g/dL (13.5-17.5); IMMATURE GRANULOCYTES 0.3 % (0-5); LYMPHOCYTES 18.6 % (15-50); MCH 29.1 pg (26.0-34.0); MCV 85.6 fL (80.0-100.0); MEAN PLATELET VOLUME 10.5 fL (7.4-10.4); NEUTROPHILS 68.1 % (40-80); PLATELET COUNT 234 10x3/uL (130-400); RBC 5.98 10x6/uL (4.20-6.10); WBC 11.1 10x3/uL (4.8-10.8)
[2017-07-18 12:05] LABS: C-REACTIVE PROTEIN 0.5 mg/dL (0.0-0.9); CREATININE - SERUM 0.9 mg/dL (0.6-1.3); VANCOMYCIN - TROUGH 20.4 ug/mL (10.0-20.0)
[2017-07-18 13:20] LABS: ERYTHROCYTE SEDIMENTATION RATE 0 mm/hr (0-15)
== END | disposition home or self-care (01) ==
LOC: D.LABREF 10:24
PROVIDERS: Student in an Organized Health Care Education/Training Program
DX: M86.172 Other acute osteomyelitis, left ankle and foot (principal)

== ENCOUNTER → 2017-08-01 08:59 | Outpatient (CLI) | payer OTHER ==
[2017-06-15 14:04] VITALS: BMI 30.8
[2017-08-01 09:33] LABS: HEMATOCRIT 52.3 % (42.0-54.0); MCH 29.8 pg (26.0-34.0); MCHC 34.4 g/dL (31.0-37.0); MCV 86.6 fL (80.0-100.0); MEAN PLATELET VOLUME 10.5 fL (7.4-10.4); PLATELET COUNT 251 10x3/uL (130-400); RBC 6.04 10x6/uL (4.20-6.10); WBC 12.1 10x3/uL (4.8-10.8)
[2017-08-01 09:56] LABS: C-REACTIVE PROTEIN 0.5 mg/dL (0.0-0.9); CREATININE - SERUM 0.9 mg/dL (0.6-1.3); VANCOMYCIN - TROUGH 17.8 ug/mL (10.0-20.0)
[2017-08-01 10:46] LABS: ANISOCYTOSIS OCC; EOSINOPHILS 4 % (0-7); LYMPHOCYTES 22 % (15-50); MONOCYTES 8 % (2-11); NEUTROPHILS 57 % (40-80); PLATELET ESTIMATE NORMAL
[2017-08-01 10:47] LABS: ERYTHROCYTE SEDIMENTATION RATE 1 mm/hr (0-15)
== END | disposition home or self-care (01) ==
LOC: D.LABREF 08:59
PROVIDERS: Student in an Organized Health Care Education/Training Program
DX: L03.116 Cellulitis of left lower limb (principal); B95.62 Methicillin resistant Staphylococcus aureus infection as the cause of diseases classified elsewhere

== ENCOUNTER → 2017-09-20 09:42 | Outpatient (CLI) | payer OTHER ==
[2017-06-15 14:04] VITALS: BMI 30.8
[2017-09-21 14:18] LABS: CREATININE - SERUM 0.9 mg/dL (0.6-1.3)
[2017-09-21 14:20] LABS: BASOPHILS 0.4 % (0-2); EOSINOPHILS 2.5 % (0-7); HEMATOCRIT 51.8 % (42.0-54.0); HEMOGLOBIN 17.7 g/dL (13.5-17.5); IMMATURE GRANULOCYTES 0.4 % (0-5); LYMPHOCYTES 19.5 % (15-50); MCHC 34.2 g/dL (31.0-37.0); MCV 84.8 fL (80.0-100.0); MEAN PLATELET VOLUME 10.6 fL (7.4-10.4); MONOCYTES 8.7 % (2-11); NEUTROPHILS 68.5 % (40-80); PLATELET COUNT 266 10x3/uL (130-400); RBC 6.11 10x6/uL (4.20-6.10); RDW 14.7 % (11.5-14.5); WBC 11.8 10x3/uL (4.8-10.8)
== END | disposition home or self-care (01) ==
LOC: D.LABREF 09:42
PROVIDERS: Student in an Organized Health Care Education/Training Program
DX: A42.9 Actinomycosis, unspecified (principal); Z51.81 Encounter for therapeutic drug level monitoring; Z79.2 Long term (current) use of antibiotics

== ENCOUNTER → 2018-04-25 11:56 | Outpatient (CLI) | payer OTHER ==
[2017-06-15 14:04] VITALS: BMI 30.8
[2018-04-26 10:38] LABS: CREATININE - SERUM 0.8 mg/dL (0.6-1.3)
== END | disposition home or self-care (01) ==
LOC: D.LABREF 11:56
PROVIDERS: Emergency Medicine
DX: L03.90 Cellulitis, unspecified (principal)

== ENCOUNTER → 2020-01-14 09:54 | Outpatient (CLI) | payer OTHER ==
[2017-06-15 14:04] VITALS: BMI 30.8
== END | disposition home or self-care (01) ==
LOC: D.ECHO 09:54 → D.CT 11:00
PROVIDERS: ATTEND Psychiatry & Neurology Neurology
DX: I63.02 Cerebral infarction due to thrombosis of basilar artery (principal)

== ENCOUNTER → 2020-02-04 09:26 | Outpatient (CLI) | payer OTHER ==
[2017-06-15 14:04] VITALS: BMI 30.8
--- NOTE | ~2020-02-04 | ST ---
PATIENT:ADIN MENA JR MEDICAL RECORD: [id number] SEX: M LOCATION:[facility] ORDER #: ADMISSION DATE: 02/04/20 AGE OF PATIENT: 54 REFERRING PHYSICIAN: INTERPRETING PHYSICIAN: ERROL PAUL MD DATE OF SERVICE: 02/04/2020 PROCEDURE: Treadmill stress test. TECHNIQUE: Baseline ECG is normal. Exercised for 6 minutes 10 seconds on Kai protocol. Maximum heart rate is 156 beats per minute, greater than 95% maximum predicted. No ECG change for ischemia. No symptoms of ischemia. Fair exercise tolerance for age. No arrhythmias were noted. TRANSINT:[id number] Voice Confirmation ID: [id number] DOCUMENT ID: [id number] ERROL PAUL MD CC: [id number] DICTATION DATE: 02/07/20806 [place]: 02/07/202207 DEP CLI 02/04/20 [facility] [address] [place] [address]
== END | disposition home or self-care (01) ==
LOC: D.HCCARDIO 09:26
PROVIDERS: ATTEND Internal Medicine Interventional Cardiology
DX: R06.09 Other forms of dyspnea (principal)